=== PATIENT | male | born 1965 | race African-American/Black ===

== ENCOUNTER 2016-11-28 13:43 | Emergency (ER) | payer MEDICARE, OTHER ==
[2016-11-28 13:04] LABS: BASOPHILS 0.4 %; BASOPHILS ABSOLUTE 0.03 10/3/uL (0.0-0.16); EOSINOPHILS 4.4 %; EOSINOPHILS ABSOLUTE 0.34 10/3/uL (0.0-0.53); HEMATOCRIT 27.5 % (40.0-51.0); HEMOGLOBIN 8.9 g/dL (13.6-17.8); IMMATURE GRANULOCYTES 0.1 %; IMMATURE GRANULOCYTES ABSOLUTE 0.01 10/3/uL (0.0-0.11); LYMPHOCYTES 35.7 %; LYMPHOCYTES ABSOLUTE 2.75 10/3/uL (0.67-4.30); MANUAL DIFF NO %; MEAN CORPUS HGB CONC 32.4 g/dL (32.0-36.0); MEAN CORPUSCULAR HEMOGLOB 21.5 pg (26.0-34.0); MEAN CORPUSCULAR VOLUME 66.4 fL (80-100); MONOCYTES 9.4 %; MONOCYTES ABSOLUTE 0.72 10/3/uL (0.21-1.20); NEUTROPHILS ABSOLUTE 3.85 10/3/uL (2.02-8.40); PLATELET COUNT 389 10/3/uL (150-400); RBC DISTRIBUTION WIDTH 16.8 % (12.0-16.0); RED CELL COUNT 4.14 10/6/uL (4.7-6.1); WHITE BLOOD CELLS 7.7 10/3/uL (4.5-10.5)
[2016-11-28 13:17] LABS: BUN (BLOOD UREA NITROGEN) 14 MG/DL (6-23); CALCIUM, SERUM 8.8 MG/DL (8.5-10.4); CHLORIDE, SERUM 106 MMOL/L (96-112); CO2 (CARBON DIOXIDE) 27 MMOL/L (24-34); CREATININE 0.63 MG/DL (0.70-1.30); GFR AFRICAN AMERICAN 133 ML/MIN (>=60); GFR NON AFRICAN AMERICAN 115 ML/MIN (>=60); GLUCOSE, SERUM 79 MG/DL (60-99); POTASSIUM, SERUM 3.6 MMOL/L (3.5-5.3); SODIUM, SERUM 142 MMOL/L (135-148)
[2016-11-28 13:22] LABS: LACTATE 1.3 MMOL/L (0.3-2.4)
[2016-11-28 13:30] LABS: PLATELET ESTIMATE ADQ (ADEQUATE)
== END 2016-11-28 16:07 | disposition home or self-care (01) ==
LOC: ER 13:43
PROVIDERS: Nurse Practitioner
DX: L89.519 Pressure ulcer of right ankle, unspecified stage (principal); L89.629 Pressure ulcer of left heel, unspecified stage; L89.899 Pressure ulcer of other site, unspecified stage; D64.9 Anemia, unspecified
CPT/HCPCS: 73590-RT; 80048; 83605; 85025; 99284

== ENCOUNTER 2017-04-15 10:28 | Inpatient (IN) | payer MEDICARE, OTHER ==
[2017-04-12 16:15] LABS: ASCORBIC ACID (UR NOT ORDER) NEG (NEG); BILIRUBIN, URINE NEGATIVE (NEG); KETONE, URINE NEGATIVE (NEG)
[~2017-04-15] VITALS: Ht 175.3 cm; Wt 65.3 kg
--- NOTE | ~2017-04-15 | DS ---
Discharge Summary [facility] [address] [place]. [address] NAME: JOYA PEÑA : 67 STATUS : ADM IN [facility]#: [id number] AGE: 51 ADM/REG DATE : 04/15/17 MR#: [id number] REPORT SERV DATE: 04/21/17 DICTATED BY: JOREG MATSON DATE: 04/21/17 REPORT STATUS : Draft TRANSCRIBED BY: MODL DATE: 04/21/17 ADMISSION DATE: 04/15/2017 DISCHARGE DATE: 04/21/2017 DISCHARGE DIAGNOSES: 1. Hematuria in the setting of a chronic indwelling Hayward. 2. Acute blood loss anemia secondary to both hematuria and a chronic anemia of inflammation. 3. Urinary tract infection in the presence of an indwelling Hayward present on admission. 4. Sepsis, present on admission. 5. Absence seizures. 6. C5-C6 paraplegia. 7. Chronic lower extremity wounds, present on admission. 8. Diabetes mellitus. PERTINENT PROCEDURES OR IMAGES PERFORMED THIS ADMISSION: CT urogram on 04/16/2017. Impression: Irregular opacity in the right posterior lateral urinary bladder which could represent a blood clot material and/or neoplasm, a catheter is present in the bladder, cholecystectomy, fecal stasis, chronic deformities of the hips and sacrum similar appear to 04/16/2017, there is periarticular soft tissue thickening and minimal fluid around the hips, not significantly changed from prior. HOSPITAL COURSE: Please refer to the history and physical from the admitting physician for full history of this patient. Briefly, this patient presented primarily for new onset massive hematuria as well as fevers at home and leukocytosis. For his hematuria Urology was consulted. He underwent Hayward irrigation and underwent the aforementioned CT urogram which showed a potential clot in his bladder versus neoplasm. With supportive care his hematuria resolved, and the plan is for the patient to follow up with Urology three weeks from discharge after he has been treated for urinary tract infection at which time, he will undergo cystoscopy. The patient did present with acute blood loss anemia and did receive blood transfusion on admission for a hemoglobin of 6.8. He had appropriate response in his hemoglobin following transfusion, and his hemoglobin remained stable thereafter. He was started on iron supplementation given concerns for anemia of chronic inflammation as well. The patient did present and reports a fever as well as leukocytosis to 18 on arrival and tachycardia, and therefore was diagnosed with sepsis present on admission. The most likely source was considered to be a urinary tract infection as had grown bacteria on a recent culture prior to admission. Ultimately, he was initially started on cefepime given a history of resistant organisms and his final urine culture eventually grew Burkholderia cepacia from a culture on 04/12/2017. When this culture resulted his cefepime was discontinued, and he was started on Bactrim and he will complete a total 14-day course of antibiotics for presumed urinary tract infection. There is a possibility that this bacteria is merely a colonizer though given lack of other possible sources, it felt to be the most Discharge Summary [address] [place]. [address] NAME: JOYA PEÑA : 67 STATUS : ADM IN [facility]#: [id number] AGE: 51 ADM/REG DATE : 04/15/17 MR#: [id number] REPORT SERV DATE: 04/21/17 DICTATED BY: JORGE MATSON DATE: 04/21/17 REPORT STATUS : Draft TRANSCRIBED BY: MODCarmelita DATE: 04/21/17 likely etiology of the sepsis. His lower extremity wounds were evaluated by Surgery the week of admission prior to being admitted and according to the patient's report the wounds "looked good." We did obtain a wound culture, and at the time of this dictation culture is in progress, but there were no microorganisms on Gram stain. For his absence seizures and C5-C6 paraplegia with resultant muscle spasms and contractures, he was continued on his home medications. DISCHARGE MEDICATIONS: 1. Baclofen 20 mg p.o. t.i.d. 2. Diazepam 5 mg p.o. t.i.d. 3. Iron polysaccharide 150 mg p.o. with breakfast and dinner. 4. Keppra 1000 mg p.o. twice per day. 5. Oxybutynin 5 mg p.o. three times a day. 6. Midodrine 5 mg p.o. b.i.d. 7. Metformin 500 mg t.i.d. 8. Bactrim suspension 20 mL/20 mL b.i.d. for seven days with the course being completed on 04/29/2017. FOLLOWUP: As mentioned prior. For the patient's finding of blood clot versus neoplasm in his bladder he will follow up with Urology Team in approximately three weeks for a cystoscopy following treatment of his bladder infection. The patient will call and schedule a PCP appointment as well in the next week or two for a standard post-discharge followup. Approximately 35 minutes were spent coordinating the discharge of this patient. DAMIR/HENRIK Jorge Matson MD / [id number] CC: MD Chico Matamoros M.D.
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
[2017-04-15 11:51] LABS: BASOPHILS 0.2 %; EOSINOPHILS 0.8 %; EOSINOPHILS ABSOLUTE 0.15 10/3/uL (0.0-0.53); HEMATOCRIT 23.7 % (40.0-51.0); HEMOGLOBIN 7.2 g/dL (13.6-17.8); IMMATURE GRANULOCYTES 0.3 %; IMMATURE GRANULOCYTES ABSOLUTE 0.06 10/3/uL (0.0-0.11); LYMPHOCYTES 10.2 %; LYMPHOCYTES ABSOLUTE 1.86 10/3/uL (0.67-4.30); MEAN CORPUS HGB CONC 30.4 g/dL (32.0-36.0); MEAN CORPUSCULAR HEMOGLOB 18.2 pg (26.0-34.0); MONOCYTES ABSOLUTE 1.65 10/3/uL (0.21-1.20); NEUTROPHILS 79.5 %; NEUTROPHILS ABSOLUTE 14.54 10/3/uL (2.02-8.40); PLATELET COUNT 379 10/3/uL (150-400); RBC DISTRIBUTION WIDTH 19.4 % (12.0-16.0); RED CELL COUNT 3.95 10/6/uL (4.7-6.1)
[2017-04-15 11:53] LABS: ER CBC TAT 0 Hrs 11 Mins; MANUAL DIFF NO %; WHITE BLOOD CELLS 18.3 10/3/uL (4.5-10.5)
[2017-04-15 11:54] LABS: BASOPHILS ABSOLUTE 0.03 10/3/uL (0.0-0.16)
[2017-04-15 12:01] LABS: A/G RATIO 0.4 (0.7-1.9); ALBUMIN 2.4 G/DL (3.5-5.0); BUN (BLOOD UREA NITROGEN) 15 MG/DL (6-23); CALCIUM, SERUM 8.3 MG/DL (8.5-10.4); CHLORIDE, SERUM 106 MMOL/L (96-112); CO2 (CARBON DIOXIDE) 27 MMOL/L (24-34); CREATININE 0.76 MG/DL (0.70-1.30); GFR AFRICAN AMERICAN 123 ML/MIN (>=60); GFR NON AFRICAN AMERICAN 106 ML/MIN (>=60); GLOBULIN 5.5 G/DL (2.5-4.1); POTASSIUM, SERUM 3.5 MMOL/L (3.5-5.3); SGOT(AST) 18 U/L (5-40); SGPT(ALT) 21 U/L (5-65); SODIUM, SERUM 140 MMOL/L (135-148); TOTAL BILIRUBIN 0.7 MG/DL (0-1.2); TOTAL PROTEIN 7.9 G/DL (6.0-8.5)
[2017-04-15 12:02] LABS: ALKALINE PHOSPHATASE 139 U/L (45-117); GLUCOSE, SERUM 126 MG/DL (60-99)
[2017-04-15 12:04] LABS: ANISOCYTOSIS 1+ (5-10/OIF) (0-5/OIF); HYPOCHROMIA 3+ (>30/OIF) (0-2/OIF); MICROCYTES 4+ (>50/OIF) (0-5/OIF); PLATELET ESTIMATE ADQ (ADEQUATE); RBC MORPHOLOGY ABN (NORMAL)
[2017-04-15 12:16] LABS: WBC (NOT ORDERED) (RFLEX) 0 (0-5)
[2017-04-15 12:27] LABS: ASCORBIC ACID (UR NOT ORDER) NEG (NEG); BILIRUBIN, URINE NEGATIVE (NEG); ER URINALYSIS TAT 0 Hrs 12 Mins; KETONE, URINE NEGATIVE (NEG); LEUKOCYTE ESTERASE(NOT OR NEG (NEG); NITRITE (URINE) NEG (NEG)
[2017-04-15] MEDS ORDERED: DITRO5 PO (13:33)
[2017-04-15] MEDS ORDERED: BACLOFEN20 MG PO (13:35)
[2017-04-15] MEDS ORDERED: V5 PO (13:36)
[2017-04-15] MEDS ORDERED: KEPPRA1000 MG PO (13:38)
[2017-04-15] MEDS ORDERED: GLUCPH PO (13:38)
[2017-04-15] MEDS ORDERED: PROAMAT5 PO (13:39)
[2017-04-15 15:30] LABS: INFLUENZA A SCREEN NEGATIVE (NEGATIVE); INFLUENZA B SCREEN NEGATIVE (NEGATIVE)
[2017-04-16 06:36] LABS: BASOPHILS 0.4 %; BASOPHILS ABSOLUTE 0.04 10/3/uL (0.0-0.16); EOSINOPHILS 3.3 %; EOSINOPHILS ABSOLUTE 0.32 10/3/uL (0.0-0.53); HEMATOCRIT 22.3 % (40.0-51.0); IMMATURE GRANULOCYTES 0.1 %; IMMATURE GRANULOCYTES ABSOLUTE 0.01 10/3/uL (0.0-0.11); LYMPHOCYTES 21.1 %; LYMPHOCYTES ABSOLUTE 2.07 10/3/uL (0.67-4.30); MEAN CORPUS HGB CONC 30.5 g/dL (32.0-36.0); MEAN CORPUSCULAR HEMOGLOB 18.6 pg (26.0-34.0); MEAN CORPUSCULAR VOLUME 61.1 fL (80-100); MONOCYTES 7.8 %; MONOCYTES ABSOLUTE 0.77 10/3/uL (0.21-1.20); NEUTROPHILS 67.3 %; PLATELET COUNT 469 10/3/uL (150-400); RBC DISTRIBUTION WIDTH 19.7 % (12.0-16.0); RED CELL COUNT 3.65 10/6/uL (4.7-6.1)
[2017-04-16 06:38] LABS: HEMOGLOBIN 6.8 g/dL (13.6-17.8); WHITE BLOOD CELLS 9.8 10/3/uL (4.5-10.5)
[2017-04-16 06:39] LABS: MANUAL DIFF NO %
[2017-04-16 06:46] LABS: BUN (BLOOD UREA NITROGEN) 13 MG/DL (6-23); CALCIUM, SERUM 8.4 MG/DL (8.5-10.4); CHLORIDE, SERUM 111 MMOL/L (96-112); CO2 (CARBON DIOXIDE) 26 MMOL/L (24-34); CREATININE 0.54 MG/DL (0.70-1.30); GFR AFRICAN AMERICAN 142 ML/MIN (>=60); GFR NON AFRICAN AMERICAN 122 ML/MIN (>=60); GLUCOSE, SERUM 117 MG/DL (60-99); POTASSIUM, SERUM 3.6 MMOL/L (3.5-5.3); SODIUM, SERUM 144 MMOL/L (135-148)
[2017-04-16 06:54] LABS: PLATELET ESTIMATE SLT INC (ADEQUATE)
[2017-04-16 06:55] LABS: ANISOCYTOSIS 1+ (5-10/OIF) (0-5/OIF); MICROCYTES 4+ (>50/OIF) (0-5/OIF); SCHISTOCYTES FEW (3-10/OIF)
[2017-04-16 06:56] LABS: ELLIPTOCYTES 1+ (3-10/OIF) (0-2/OIF); HELMET CELLS OCC (0-2/OIF); HYPOCHROMIA 1+ (3-10/OIF) (0-2/OIF); POLYCHROMASIA 1+ (2-5/OIF) (0-1/OIF); TEARDROP SHAPED RBCS OCC (0-2/OIF)
[2017-04-17 06:34] LABS: BASOPHILS 0.4 %; BASOPHILS ABSOLUTE 0.04 10/3/uL (0.0-0.16); EOSINOPHILS 4.5 %; EOSINOPHILS ABSOLUTE 0.44 10/3/uL (0.0-0.53); HEMOGLOBIN 7.9 g/dL (13.6-17.8); IMMATURE GRANULOCYTES 0.2 %; IMMATURE GRANULOCYTES ABSOLUTE 0.02 10/3/uL (0.0-0.11); LYMPHOCYTES 30.6 %; LYMPHOCYTES ABSOLUTE 2.99 10/3/uL (0.67-4.30); MANUAL DIFF NO %; MEAN CORPUS HGB CONC 31.6 g/dL (32.0-36.0); MEAN CORPUSCULAR HEMOGLOB 19.8 pg (26.0-34.0); MEAN CORPUSCULAR VOLUME 62.5 fL (80-100); MONOCYTES 6.4 %; MONOCYTES ABSOLUTE 0.63 10/3/uL (0.21-1.20); NEUTROPHILS 57.9 %; NEUTROPHILS ABSOLUTE 5.65 10/3/uL (2.02-8.40); PLATELET COUNT 496 10/3/uL (150-400); RBC DISTRIBUTION WIDTH 21.2 % (12.0-16.0); WHITE BLOOD CELLS 9.8 10/3/uL (4.5-10.5)
[2017-04-17 06:46] LABS: BUN (BLOOD UREA NITROGEN) 11 MG/DL (6-23); CALCIUM, SERUM 8.6 MG/DL (8.5-10.4); CHLORIDE, SERUM 107 MMOL/L (96-112); CO2 (CARBON DIOXIDE) 24 MMOL/L (24-34); GFR AFRICAN AMERICAN 136 ML/MIN (>=60); GFR NON AFRICAN AMERICAN 117 ML/MIN (>=60); SODIUM, SERUM 138 MMOL/L (135-148)
[2017-04-17 06:47] LABS: GLUCOSE, SERUM 91 MG/DL (60-99)
[2017-04-17 07:01] LABS: ANISOCYTOSIS 1+ (5-10/OIF) (0-5/OIF); ELLIPTOCYTES 1+ (3-10/OIF) (0-2/OIF); PLATELET ESTIMATE SLT INC (ADEQUATE); POIKILOCYTOSIS 1+ (5-10/OIF) (0-5/OIF)
[2017-04-17 07:02] LABS: MICROCYTES 4+ (>50/OIF) (0-5/OIF)
[2017-04-18 05:33] LABS: BASOPHILS 0.5 %; BASOPHILS ABSOLUTE 0.04 10/3/uL (0.0-0.16); EOSINOPHILS 4.9 %; EOSINOPHILS ABSOLUTE 0.41 10/3/uL (0.0-0.53); HEMATOCRIT 25.6 % (40.0-51.0); HEMOGLOBIN 7.8 g/dL (13.6-17.8); IMMATURE GRANULOCYTES 0.2 %; IMMATURE GRANULOCYTES ABSOLUTE 0.02 10/3/uL (0.0-0.11); LYMPHOCYTES 30.7 %; LYMPHOCYTES ABSOLUTE 2.56 10/3/uL (0.67-4.30); MEAN CORPUS HGB CONC 30.5 g/dL (32.0-36.0); MEAN CORPUSCULAR HEMOGLOB 19.3 pg (26.0-34.0); MEAN CORPUSCULAR VOLUME 63.2 fL (80-100); MONOCYTES 8.8 %; MONOCYTES ABSOLUTE 0.73 10/3/uL (0.21-1.20); NEUTROPHILS 54.9 %; NEUTROPHILS ABSOLUTE 4.57 10/3/uL (2.02-8.40); PLATELET COUNT 515 10/3/uL (150-400); RBC DISTRIBUTION WIDTH 21.4 % (12.0-16.0); RED CELL COUNT 4.05 10/6/uL (4.7-6.1); WHITE BLOOD CELLS 8.3 10/3/uL (4.5-10.5)
[2017-04-18 05:34] LABS: MANUAL DIFF NO %
[2017-04-18 05:45] LABS: BUN (BLOOD UREA NITROGEN) 13 MG/DL (6-23); CALCIUM, SERUM 8.8 MG/DL (8.5-10.4); CHLORIDE, SERUM 109 MMOL/L (96-112); CO2 (CARBON DIOXIDE) 26 MMOL/L (24-34); CREATININE 0.49 MG/DL (0.70-1.30); GFR AFRICAN AMERICAN 148 ML/MIN (>=60); GFR NON AFRICAN AMERICAN 127 ML/MIN (>=60); GLUCOSE, SERUM 89 MG/DL (60-99); PHOSPHORUS, SERUM 2.8 MG/DL (2.5-4.5); POTASSIUM, SERUM 3.7 MMOL/L (3.5-5.3); SODIUM, SERUM 141 MMOL/L (135-148)
[2017-04-18 05:58] LABS: ANISOCYTOSIS 1+ (5-10/OIF) (0-5/OIF); PLATELET ESTIMATE SLT INC (ADEQUATE)
[2017-04-18 05:59] LABS: ELLIPTOCYTES 1+ (3-10/OIF) (0-2/OIF); MICROCYTES 4+ (>50/OIF) (0-5/OIF); POIKILOCYTOSIS 1+ (5-10/OIF) (0-5/OIF)
[2017-04-19 06:28] LABS: BUN (BLOOD UREA NITROGEN) 12 MG/DL (6-23); CALCIUM, SERUM 8.8 MG/DL (8.5-10.4); CHLORIDE, SERUM 111 MMOL/L (96-112); CREATININE 0.69 MG/DL (0.70-1.30); GFR AFRICAN AMERICAN 128 ML/MIN (>=60); GFR NON AFRICAN AMERICAN 111 ML/MIN (>=60); GLUCOSE, SERUM 87 MG/DL (60-99); SODIUM, SERUM 140 MMOL/L (135-148)
[2017-04-19 06:29] LABS: CO2 (CARBON DIOXIDE) 19 MMOL/L (24-34); POTASSIUM, SERUM 4.8 MMOL/L (3.5-5.3)
[2017-04-19 07:37] LABS: BASOPHILS 0.6 %; BASOPHILS ABSOLUTE 0.05 10/3/uL (0.0-0.16); EOSINOPHILS 4.4 %; EOSINOPHILS ABSOLUTE 0.36 10/3/uL (0.0-0.53); HEMATOCRIT 26.2 % (40.0-51.0); HEMOGLOBIN 8.1 g/dL (13.6-17.8); IMMATURE GRANULOCYTES 0.2 %; IMMATURE GRANULOCYTES ABSOLUTE 0.02 10/3/uL (0.0-0.11); LYMPHOCYTES 32.9 %; LYMPHOCYTES ABSOLUTE 2.71 10/3/uL (0.67-4.30); MEAN CORPUS HGB CONC 30.9 g/dL (32.0-36.0); MEAN CORPUSCULAR HEMOGLOB 19.3 pg (26.0-34.0); MEAN CORPUSCULAR VOLUME 62.4 fL (80-100); MONOCYTES 10.3 %; MONOCYTES ABSOLUTE 0.85 10/3/uL (0.21-1.20); NEUTROPHILS 51.6 %; NEUTROPHILS ABSOLUTE 4.25 10/3/uL (2.02-8.40); PLATELET COUNT 559 10/3/uL (150-400); RBC DISTRIBUTION WIDTH 21.9 % (12.0-16.0); WHITE BLOOD CELLS 8.2 10/3/uL (4.5-10.5)
[2017-04-19 07:39] LABS: MANUAL DIFF NO %
[2017-04-19 07:53] LABS: HYPOCHROMIA 1+ (3-10/OIF) (0-2/OIF); MICROCYTES 4+ (>50/OIF) (0-5/OIF); POLYCHROMASIA 1+ (2-5/OIF) (0-1/OIF); SCHISTOCYTES FEW (3-10/OIF)
[2017-04-19 07:54] LABS: HELMET CELLS OCC (0-2/OIF); OVALOCYTES 1+ (3-10/OIF) (0-2/OIF); TEARDROP SHAPED RBCS OCC (0-2/OIF)
[2017-04-20 06:24] LABS: BASOPHILS 0.3 %; BASOPHILS ABSOLUTE 0.02 10/3/uL (0.0-0.16); EOSINOPHILS 5.5 %; EOSINOPHILS ABSOLUTE 0.44 10/3/uL (0.0-0.53); HEMATOCRIT 24.2 % (40.0-51.0); HEMOGLOBIN 7.5 g/dL (13.6-17.8); IMMATURE GRANULOCYTES 0.3 %; IMMATURE GRANULOCYTES ABSOLUTE 0.02 10/3/uL (0.0-0.11); LYMPHOCYTES 31.9 %; LYMPHOCYTES ABSOLUTE 2.54 10/3/uL (0.67-4.30); MEAN CORPUSCULAR HEMOGLOB 19.5 pg (26.0-34.0); MONOCYTES 9.3 %; MONOCYTES ABSOLUTE 0.74 10/3/uL (0.21-1.20); NEUTROPHILS 52.7 %; NEUTROPHILS ABSOLUTE 4.19 10/3/uL (2.02-8.40); PLATELET COUNT 562 10/3/uL (150-400); RBC DISTRIBUTION WIDTH 22.3 % (12.0-16.0); RED CELL COUNT 3.84 10/6/uL (4.7-6.1)
[2017-04-20 06:25] LABS: MANUAL DIFF NO %
[2017-04-20 06:32] LABS: BUN (BLOOD UREA NITROGEN) 14 MG/DL (6-23); CALCIUM, SERUM 8.5 MG/DL (8.5-10.4); CHLORIDE, SERUM 107 MMOL/L (96-112); CREATININE 0.67 MG/DL (0.70-1.30); GFR AFRICAN AMERICAN 130 ML/MIN (>=60); GFR NON AFRICAN AMERICAN 112 ML/MIN (>=60); POTASSIUM, SERUM 4.2 MMOL/L (3.5-5.3); SODIUM, SERUM 139 MMOL/L (135-148)
[2017-04-20 06:33] LABS: CO2 (CARBON DIOXIDE) 26 MMOL/L (24-34); GLUCOSE, SERUM 53 MG/DL (60-99)
[2017-04-20 07:09] LABS: ELLIPTOCYTES 1+ (3-10/OIF) (0-2/OIF); PLATELET ESTIMATE SLT INC (ADEQUATE); POIKILOCYTOSIS 1+ (5-10/OIF) (0-5/OIF); POLYCHROMASIA 1+ (2-5/OIF) (0-1/OIF); TARGET CELLS OCC (1-2/OIF) (0-1/OIF); TEARDROP SHAPED RBCS OCC (0-2/OIF)
[2017-04-20 07:10] LABS: HELMET CELLS OCC (0-2/OIF); MACROCYTES 1+ (5-10/OIF) (0-5/OIF); MICROCYTES 4+ (>50/OIF) (0-5/OIF); SCHISTOCYTES OCC (0-2/OIF)
[2017-04-21 06:37] LABS: BASOPHILS 0.4 %; BASOPHILS ABSOLUTE 0.04 10/3/uL (0.0-0.16); EOSINOPHILS 5.2 %; EOSINOPHILS ABSOLUTE 0.47 10/3/uL (0.0-0.53); HEMOGLOBIN 8.3 g/dL (13.6-17.8); IMMATURE GRANULOCYTES 0.4 %; IMMATURE GRANULOCYTES ABSOLUTE 0.04 10/3/uL (0.0-0.11); LYMPHOCYTES ABSOLUTE 2.62 10/3/uL (0.67-4.30); MEAN CORPUS HGB CONC 30.4 g/dL (32.0-36.0); MEAN CORPUSCULAR HEMOGLOB 19.3 pg (26.0-34.0); MEAN CORPUSCULAR VOLUME 63.5 fL (80-100); MONOCYTES 10.5 %; MONOCYTES ABSOLUTE 0.95 10/3/uL (0.21-1.20); NEUTROPHILS 54.5 %; NEUTROPHILS ABSOLUTE 4.91 10/3/uL (2.02-8.40); PLATELET COUNT 597 10/3/uL (150-400); RBC DISTRIBUTION WIDTH 22.9 % (12.0-16.0)
[2017-04-21 06:41] LABS: HEMATOCRIT 27.3 % (40.0-51.0)
[2017-04-21 06:42] LABS: MANUAL DIFF NO %
[2017-04-21 06:52] LABS: BUN (BLOOD UREA NITROGEN) 12 MG/DL (6-23); CALCIUM, SERUM 8.7 MG/DL (8.5-10.4); CHLORIDE, SERUM 106 MMOL/L (96-112); CO2 (CARBON DIOXIDE) 25 MMOL/L (24-34); CREATININE 0.79 MG/DL (0.70-1.30); GFR AFRICAN AMERICAN 121 ML/MIN (>=60); GFR NON AFRICAN AMERICAN 105 ML/MIN (>=60); GLUCOSE, SERUM 98 MG/DL (60-99); POTASSIUM, SERUM 4.4 MMOL/L (3.5-5.3); SODIUM, SERUM 138 MMOL/L (135-148)
[2017-04-21 07:12] LABS: MICROCYTES 4+ (>50/OIF) (0-5/OIF); PLATELET ESTIMATE SLT INC (ADEQUATE)
[2017-04-21 07:13] LABS: POIKILOCYTOSIS 1+ (5-10/OIF) (0-5/OIF); SCHISTOCYTES OCC (0-2/OIF)
[2017-04-21] MEDS ORDERED: MYFERON 150150 MG PO (11:12)
[2017-04-21] MEDS ORDERED: BAC PO (11:16)
== END 2017-04-21 16:44 | disposition home health service (06) | DRG 698 ==
LOC: ER 10:28 → 5SO 15:51 → ER/OF 15:51 → 5SO 16:57
PROVIDERS: Family Medicine Adult Medicine; Hospitalist; Internal Medicine
PROC: 30233N1 Transfusion of Nonautologous Red Blood Cells into Peripheral Vein, Percutaneous Approach (ICD-10-PCS; principal; 2017-04-16)
DX: T83.518A Infection and inflammatory reaction due to other urinary catheter, initial encounter (principal); G82.50 Quadriplegia, unspecified; A41.9 Sepsis, unspecified organism; E46 Unspecified protein-calorie malnutrition; L89.529 Pressure ulcer of left ankle, unspecified stage; D62 Acute posthemorrhagic anemia; L89.519 Pressure ulcer of right ankle, unspecified stage; N39.0 Urinary tract infection, site not specified; E11.9 Type 2 diabetes mellitus without complications; R31.0 Gross hematuria; G40.A09 Absence epileptic syndrome, not intractable, without status epilepticus
CPT/HCPCS: 36415; 71010; 74178; 80048; 80053; 81001; 82962; 83735; 84100; 85025; 86850; 86900; 86901; 86920; 87040; 87070; 87075; 87077; 87086; 87186; 87205; 87804; 96365; 99285; A9270-GY; J0692; P9016; Q9967